=== PATIENT | female | born 1980 | race Caucasian/White ===

== ENCOUNTER 2022-01-17 12:32 | Emergency (ER) | payer BC, OTHER ==
[2022-01-17 12:52] VITALS: TEMP 97.5; BMI 23.3
[2022-01-17] MEDS ORDERED: ASPIRIN 81 MG CHEWABLE TABLETS PO ONE (13:33)
[2022-01-17] MEDS ORDERED: SODIUM CHLORIDE 1,000 ML IV STA (13:33)
[2022-01-17] MEDS ORDERED: ASPIRIN 81 MG CHEWABLE TABLETS ONE (13:52)
[2022-01-17 14:53] LABS: BASO % 0.6 % (0-2.0); EOS % 0.1 % (0-4.5); HEMATOCRIT 38.8 % (32.4-45.2); HEMOGLOBIN 13.2 GM/dL (10.7-15.3); LYMPH % 14.8 % (8-40); MCH 30.2 pg (25.7-33.7); MCHC 34.1 g/dl (32.0-36.0); MEAN CELL VOLUME 88.5 fl (80-96); MEAN PLT VOLUME 8.6 fl (7.5-11.1); MONO % 9.9 % (3.8-10.2); NEUT % 74.6 % (42.8-82.8); PLATELET COUNT 267 10^3/uL (134-434); RBC 4.38 M/mm3 (3.60-5.2); RDW 14.1 % (11.6-15.6); WHITE BLOOD COUNT 10.1 K/mm3 (4.0-10.0)
[2022-01-17 15:06] LABS: INR 1.03 (0.83-1.09); PROTHROMBIN TIME (PATIENT) 11.9 SEC (9.7-13.0)
[2022-01-17 15:09] LABS: ACTIVATED PTT 29.3 SECONDS (25.2-36.5)
[2022-01-17 15:18] LABS: CALCIUM 10.1 mg/dL (8.5-10.1)
[2022-01-17 15:19] LABS: ALBUMIN 4.5 g/dl (3.4-5.0); BLOOD UREA NITROGEN 14.7 mg/dL (7-18); MAGNESIUM 2.5 mg/dL (1.8-2.4)
[2022-01-17 15:22] LABS: CREATININE 0.7 mg/dL (0.55-1.3); N-TERMINAL BNP 98.6 pg/ml (5-125)
[2022-01-17 15:23] LABS: BILIRUBIN,TOTAL 0.5 mg/dL (0.2-1); TOT PROT 8.5 g/dl (6.4-8.2)
[2022-01-17 17:23] VITALS: BP 113/76; PULSE 69
== END 2022-01-17 18:43 | disposition home or self-care (01) ==
LOC: JER 12:32
PROC: 3E0337Z Introduction of Electrolytic and Water Balance Substance into Peripheral Vein, Percutaneous Approach (ICD-10-PCS; principal; 2022-01-17)
DX: R00.2 Palpitations (principal)
CPT/HCPCS: 36415; 71046-TC-FY; 71275-TC; 80053; 83735; 83880; 84443; 84484; 84703; 85025; 85379; 85610; 85730; 93005; 93010; 99285-25